=== PATIENT | female | born 1985 | race Caucasian/White ===

== ENCOUNTER → 2020-09-05 | Outpatient (CLI) | payer OTHER ==
[~2020-09-05] MED LIST: MACROBID 100 M100 M1 PO; MULTIVITAMINS PO; ORTHO TRI-CYCL1 EACH PO; SPRINTEC1 EACH PO
== END ==
LOC: MRI 09:33
PROVIDERS: ATTEND Nurse Practitioner
DX: G43.909 Migraine, unspecified, not intractable, without status migrainosus (principal)